=== PATIENT | male | born 1940 | race Caucasian/White ===

== ENCOUNTER 2018-07-04 07:41 | Emergency (ER) | payer OTHER ==
[2018-07-04 07:55] VITALS: BP 136/71; PULSE 92; TEMP 97.9; BMI 26.9
--- NOTE | 2018-07-04 07:56 | PDOC ---
History of Present Illness - General Chief Complaint: Rectal Bleed Stated Complaint: BLOOD IN THE STOOL Time Seen by Provider: 07/04/18 07:55 History Source: Patient Exam Limitations: No Limitations - History of Present Illness Initial Comments: 07/04/18 08:25 Mr. Hester is 78 yo M with a hx of AAA (stent 2005; last check was Jun 15, 2018 for patency and was patent), HTN, HLD, and gout presents to the emergency department with painless rectal bleeding that has been ongoing since Wednesday. Per the patient, he had a loose stool bowel movement that has red blood in the toilet. He had another movement on Wednesday and complains that he was having tarry black stool without bright red blood. He denies pain and weakness. His last colonscopy was 4 years ago and was within normal limits (positive familial hx of colon CA in brother and stomach CA in father) and denies hx of gastric ulcers. Denies the following: fevers, chills, SOB, chest pain, headache, visual changes, abdominal pain, dysuria, hematuria, constipation, and leg pain/ swelling. Pmhx: Refer to above Meds: atorvastatin, Aspirin 81 mg, losartan, and diltiazem. Recently prescribed isosorbide that was started last Wednesday Allergies: None Social: Denies tobacco, alcohol, and substance abuse Perianesthesia Rn: Dr. Choudhary with last EGD and Colonoscopy 4 yrs ago and was within normal limits. Past History - Past Medical History Allergies/Adverse Reactions: Allergies Allergy/AdvReac Type Severity Reaction Status Date / Time No Known Allergies Allergy Verified 03/02/18 09:56 Home Medications: Ambulatory Orders Aspirin [ASA -] 81 mg PO DAILY 03/21/13 Atorvastatin Ca [Lipitor] 10 mg PO DAILY 03/21/13 Diltiazem HCl [Diltiazem 24Hr Cd] 240 mg PO DAILY 03/02/18 Losartan Potassium 50 mg PO DAILY 03/02/18 Isosorbide Mononitrate [Imdur -] 30 mg PO DAILY 07/04/18 Anemia: No Asthma: No Cancer: No Cardiac Disorders: No CVA: No COPD: No CHF: No Dementia: No Diabetes: No GI Disorders: Yes (DIVERTICULOSIS) Disorders: Yes (GOUT) HTN: Yes Hypercholesterolemia: Yes Liver Disease: No Seizures: No Thyroid Disease: No - Surgical History Abdominal Surgery: Yes (AAA REPAIR, STENT) Appendectomy: No Cardiac Surgery: No Cholecystectomy: No Lung Surgery: No Neurologic Surgery: No Orthopedic Surgery: Yes (RT ANKLE SX) - Suicide/Smoking/Psychosocial Hx Smoking Status: Yes Smoking History: Former smoker Have you smoked in the past 12 months: No Number of Cigarettes Smoked Daily: 3 If you are a former smoker, when did you quit?: 2013 Information on smoking cessation initiated: No 'Breaking Loose' booklet given: 11/22/13 Hx Alcohol Use: Yes (SOCIAL) Drug/Substance Use Hx: No Review of Systems - Review of Systems Able to Perform ROS?: Yes Is the patient limited Portuguese proficient: No Constitutional: No: Chills, Diaphoresis, Fever, Weakness HEENTM: No: Eye Pain, Recent change in vision, Nose Pain, Throat Pain Respiratory: No: Shortness of Breath Cardiac (ROS): No: Chest Pain, Lightheadedness, Palpitations, Syncope ABD/GI: Yes: Rectal Bleeding, Tarry Stools. No: Constipated, Diarrhea, Difficulty Swallowing, Nausea, Vomiting, Abdominal cramping : No: Dysuria, Hematuria Musculoskeletal: No: Back Pain Integumentary: No: Rash Neurological: No: Headache Endocrine: No: Unexplained Weight Loss Hematologic/Lymphatic: No: Anemia *Physical Exam - Vital Signs Last Vital Signs Temp Pulse Resp BP Pulse Ox 97.9 F 92 H 18 136/71 94 L 07/04/18 07:54 07/04/18 07:54 07/04/18 07:54 07/04/18 07:54 07/04/18 07:54 - Physical Exam General Appearance: Yes: Nourished, Appropriately Dressed. No: Apparent Distress HEENT: positive: EOMI, LAQUITA Respiratory/Chest: positive: Lungs Clear, Normal Breath Sounds. negative: Chest Tender, Respiratory Distress, Accessory Muscle Use Cardiovascular: positive: Regular Rhythm, Regular Rate, S1, S2, Systolic Murmur (grade 1) Gastrointestinal/Abdominal: positive: Normal Bowel Sounds, Soft, Other ( abdominal bruit present). negative: Tender, Pulsatile Mass, Distended Rectal Exam: positive: normal rectal tone, heme positive stool, other (enlarged prostate without tenderness to palpation). negative: hemorrhoids Extremity: positive: Normal Capillary Refill, Normal Inspection, Normal Range of Motion. negative: Tender Integumentary: positive: Normal Color, Dry, Warm Neurologic: positive: dandy operator II-XII NML intact, Fully Oriented, Alert, Normal Mood/ Affect ED Treatment Course - LABORATORY CBC & Chemistry Diagram: 07/04/18 08:40 07/04/18 08:40 Medical Decision Making - Medical Decision Making 07/04/18 11:44 Mr. Hester is 78 yo M with a hx of AAA (stent 2005; last check was Jun 15, 2018 for patency and was patent), HTN, HLD, and gout presents to the emergency department with painless rectal bleeding that has been ongoing since Wednesday. Initial vitals: Initial Vital Signs Temp Pulse Resp BP Pulse Ox 97.9 F 92 H 18 136/71 94 L 07/04/18 07:54 07/04/18 07:54 07/04/18 07:54 07/04/18 07:54 07/04/18 07:54 Work up: CBC, CMP, PT/INR, aptt, TS, retype and screen, and CT abdomen and pelvis with IV contrast. CBC ordered to assess status of hemoglobin and hematocrit. PT/INR, aptt, TS ordered to have pre-operative values in the event of surgical intervention. This was considered due to his history of AAA with stent placement in 2005. CT abdomen/pelvis ordered with IV contrast to assess aorta patency and to assess if extravasation present and to rule out other critical pathologies that can cause GI bleed such as carcinoma (given familial hx), diverticulitis with possible perforation, and aorta-enteric fistula. All labs were within normal limits. No anemia present. A stool occult blood test was conducted and positive. CT showed sigmoid diverticulosis without diverticulitis and no leakage of the aorta. The patient was reassessed and continues to not have pain and did not produce hematochezia in the department. We spoke to his PMD and he is aware of the situation and will have close follow up. In addition, he was referred to gastroenterology for follow up. The patient agreed to this plan and accepted it. Dispo: Will be discharged after discussing with Dr. Stone the plan. *DC/Admit/Observation/Transfer Diagnosis at time of Disposition: Diverticulosis Qualifiers: Diverticulosis site: unspecified location Diverticulosis bleeding: diverticulosis with bleeding Qualified Code(s): K57.91 - Diverticulosis of intestine, part unspecified, without perforation or abscess with bleeding - Discharge Dispostion Disposition: HOME Condition at time of disposition: Stable Decision to Admit order: No - Referrals Referrals: Mateus Stone MD [Primary Care Provider] - Ricky Barnes DO [Staff Physician] - - Patient Instructions Printed Discharge Instructions: DI for Rectal Bleeding Additional Instructions: You have been seen in the emergency department for your rectal bleeding. Based on your imaging, you have diverticulosis which can cause painless rectal bleeding. Your abdominal aorta is patent and does not have a leakage. Your hemoglobin and hematocrit is stable. We contacted your primary medical doctor and is aware of your visit. You will be referred to Dr. Barnes for gastroenterology follow up. Please call him within 24-36 hours for follow up care and to make an appointment. Please return to the emergency department if you have profuse bleeding, fever/chills, and new onset of pain associated with your bleeding. Thank you. - Post Discharge Activity
[2018-07-04 08:53] LABS: HEMATOCRIT 47.5 % (35.4-49); HEMOGLOBIN 16.2 GM/dL (11.7-16.9); MCH 29.8 pg (25.7-33.7); MCHC 34.1 g/dl (32.0-35.9); MEAN CELL VOLUME 87.3 fl (80-96); MEAN PLT VOLUME 8.2 fl (7.5-11.1); PLATELET COUNT 252 K/MM3 (134-434); RBC 5.45 M/mm3 (4.00-5.60); RDW 14.9 % (11.9-15.9); WHITE BLOOD COUNT 7.6 K/mm3 (4.0-10.0)
[2018-07-04 09:04] LABS: INR 1.04 (0.83-1.09); PROTHROMBIN TIME (PATIENT) 12.3 SEC (9.7-13.0)
[2018-07-04 09:07] LABS: ACTIVATED PTT 31.4 SECONDS (25.2-36.5)
[2018-07-04 09:23] LABS: ALBUMIN 4.2 g/dl (3.4-5.0); ALK PHOS 67 U/L (45-117); ANION GAP 11 MMOL/L (8-16); BILIRUBIN,TOTAL 0.6 mg/dL (0.2-1); BLOOD UREA NITROGEN 16 mg/dL (7-18); CALCIUM 8.8 mg/dL (8.5-10.1); CHLORIDE 110 mmol/L (98-107); CO2 24 mmol/L (21-32); GLUCOSE,RANDOM 101 mg/dL (74-106); POTASSIUM 3.9 mmol/L (3.5-5.1); SGOT/AST 16 U/L (15-37); SGPT/ALT 24 U/L (13-61); SODIUM 145 mmol/L (136-145); TOT PROT 7.9 g/dl (6.4-8.2)
== END 2018-07-04 12:07 | disposition home or self-care (01) ==
LOC: JER 07:41 → SUPCPDRO 07:41 → JER 12:07
DX: K57.91 Diverticulosis of intestine, part unspecified, without perforation or abscess with bleeding (principal); I10 Essential (primary) hypertension; E78.00 Pure hypercholesterolemia, unspecified; Z86.79 Personal history of other diseases of the circulatory system; Z95.828 Presence of other vascular implants and grafts; Z87.891 Personal history of nicotine dependence
CPT/HCPCS: 36415; 74177-TC; 80053; 82272; 85027; 85610; 85730; 86850; 86900; 86901; 99283-25

== ENCOUNTER 2020-03-25 21:59 | Emergency (ER) | payer OTHER ==
[2020-03-25 22:05] VITALS: BP 166/88; PULSE 81; TEMP 98.3; BMI 24.4
--- NOTE | 2020-03-25 22:07 | PDOC ---
Rapid Medical Evaluation Chief Complaint: Ingrown toenail Time Seen by Provider: 03/25/20 22:04 Medical Evaluation: Allergies Allergy/AdvReac Type Severity Reaction Status Date / Time No Known Allergies Allergy Verified 03/02/18 09:56 03/25/20 22:04 80 year old male c/o discoloration to left great toe. denies trauma or injury. no use od blood thinners. PE: patient alert ox3. full rom A: left great toe color changes P: patient to the ER for further management of care. Discharge Disposition - Diagnosis Contusion of left great toe without damage to nail Qualifiers: Encounter type: initial encounter Qualified Code(s): S90.112A - Contusion of left great toe without damage to nail, initial encounter - Referrals - Patient Instructions - Post Discharge Activity
--- NOTE | 2020-03-25 22:46 | PDOC ---
History of Present Illness - General History Source: Patient, Old Records Exam Limitations: No Limitations - History of Present Illness Initial Comments: 03/25/20 22:17 HISTORY OF PRESENT ILLNESS: 78 yo M with a hx of AAA (stent 2005; last check was Jun 15, 2018 for patency and was patent), HTN, HLD, and gout presents emergency department for evaluation of bruising to left great toe. Patient denies any trauma. 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 PAST MEDICAL HISTORY: See HPI SURGICAL HISTORY: Denies ALLERGIES: No known drug allergies REVIEW OF SYSTEMS General/Constitutional: Denies fever or chills. Denies weakness, weight change. HEENT: Denies change in vision. Denies ear pain or discharge. Denies sore throat. Cardiovascular: Denies chest pain or shortness of breath. Respiratory: Denies cough, wheezing, or hemoptysis. Gastrointestinal: Denies nausea, vomiting, diarrhea or constipation. Denies rectal bleeding. Genitourinary: Denies dysuria, frequency, or change in urination. Musculoskeletal: See HPI Skin and breasts: Denies rash or easy bruising. Neurologic: Denies headache, vertigo, loss of consciousness, or loss of sensation. Psychiatric: Denies depression or anxiety. Endocrine: Denies increased thirst. Denies abnormal weight change. Hematologic/Lymphatic: Denies anemia, easy bleeding, or history of blood clots. Allergic/Immunologic: Denies hives or skin allergy. Denies latex allergy. PHYSICAL EXAM General Appearance: Well-appearing, appropriately dressed. No apparent distress, no intoxication. Musculoskeletal/Extremities: FROM of all extremities, normal capillary refill. Pelvis Stable. No CVA tenderness. No tenderness to extremities, pedal edema, swelling, erythema or deformity. Ecchymosis present to the plantar surface at the base of the great toe of the left foot. Neurovascularly intact. Integumentary: Ecchymosis present to the plantar surface at the base of the great toe of the left foot. 03/25/20 22:47 <Jatinder Fatima - Last Filed: 03/25/20 22:51> <Loretta Cross - Last Filed: 03/25/20 23:05> - General Chief Complaint: Ingrown toenail Stated Complaint: SICK Time Seen by Provider: 03/25/20 22:04 Past History - Medical History Anemia: No Asthma: No Cancer: No Cardiac Disorders: No CVA: No COPD: No CHF: No Dementia: No Diabetes: No GI Disorders: Yes (DIVERTICULOSIS) Disorders: Yes (GOUT) HTN: Yes Hypercholesterolemia: Yes Liver Disease: No Seizures: No Thyroid Disease: No - Surgical History Abdominal Surgery: Yes (AAA REPAIR, STENT) Appendectomy: No Cardiac Surgery: No Cholecystectomy: No Lung Surgery: No Neurologic Surgery: No Orthopedic Surgery: Yes (RT ANKLE SX) - Psycho-Social/Smoking History Smoking Status: Yes Smoking History: Never smoked Have you smoked in the past 12 months: No Number of Cigarettes Smoked Daily: 3 If you are a former smoker, when did you quit?: 2013 Information on smoking cessation initiated: No 'Breaking Loose' booklet given: 11/22/13 - Substance Abuse Hx (Audit-C & DAST Scrn) How often the patient has a drink containing alcohol: Never Score: In Men: 4 or > Positive; In Women: 3 or > Positive: 0 Screen Result (Pos requires Nsg. Audit-10AR): Negative In the last yr the pt used illegal drug/Rx for NonMed reason: No Score: Yes response is considered Positive: 0 Screen Result (Positive result requires Nsg. DAST-10): Negative <Jatinder Fatima - Last Filed: 03/25/20 22:51> <Loretta Cross - Last Filed: 03/25/20 23:05> - Medical History Allergies/Adverse Reactions: Allergies Allergy/AdvReac Type Severity Reaction Status Date / Time No Known Allergies Allergy Verified 03/25/20 22:05 Home Medications: Ambulatory Orders Aspirin [ASA -] 81 mg PO DAILY 03/21/13 Atorvastatin Ca [Lipitor] 10 mg PO DAILY 03/21/13 Diltiazem HCl [Diltiazem 24Hr Cd] 240 mg PO DAILY 03/02/18 Losartan Potassium 50 mg PO DAILY 03/02/18 Isosorbide Mononitrate [Imdur -] 30 mg PO DAILY 07/04/18 *Physical Exam - Vital Signs Last Vital Signs Temp Pulse Resp BP Pulse Ox 98.3 F 81 20 166/88 95 03/25/20 22:01 03/25/20 22:01 03/25/20 22:01 03/25/20 22:01 03/25/20 22:01 <Jatinder Fatima - Last Filed: 03/25/20 22:51> - Vital Signs Last Vital Signs Temp Pulse Resp BP Pulse Ox 98.3 F 81 20 166/88 95 03/25/20 22:01 03/25/20 22:01 03/25/20 22:01 03/25/20 22:01 03/25/20 22:01 <Loretta Cross - Last Filed: 03/25/20 23:05> ED Treatment Course - RADIOLOGY Radiology Studies Ordered: Category Date Time Status FOOT-LEFT [RAD] Stat Radiology 03/25/20 22:15 Ordered <Jatinder Fatima - Last Filed: 03/25/20 22:51> Medical Decision Making - Medical Decision Making 03/25/20 22:46 A/P: 80-year-old male with bruising to great toe of the left foot Patient denies trauma No bony deformity, crepitus, step-off present upon palpation of the bones of the left foot Full active range of motion noted Neurovascularly intact X-rays Reassess likely discharge home <Jatinder Fatima - Last Filed: 03/25/20 22:51> - Medical Decision Making 03/25/20 23:04 xray : negative. official read pending. patient to follow up with PCP <Loretta Cross - Last Filed: 03/25/20 23:05> Discharge - Discharge Information Problems reviewed: Yes - Admission No <Jatinder Fatima - Last Filed: 03/25/20 22:51> <Loretta Cross - Last Filed: 03/25/20 23:05> - Discharge Information Clinical Impression/Diagnosis: Contusion of left great toe without damage to nail Qualifiers: Encounter type: initial encounter Qualified Code(s): S90.112A - Contusion of left great toe without damage to nail, initial encounter Condition: Stable Disposition: HOME - Follow up/Referral Referrals: Mateus Stone MD [Primary Care Provider] - José Miguel Hussein DPM [Staff Physician] - - Patient Discharge Instructions Additional Instructions: You be given a referral for a fiberglass model maker. Call to schedule appointment for reevaluation. Your emergency department visit is incomplete until you follow-up with your regular doctor. Take Tylenol 2-500 mg tablets every 6 hours as needed for pain. This medication does not require a prescription and is [id number]. Return to the emergency department for any new or worsening symptoms. Thank you very much for choosing us to provide your emergent health care needs. - Post Discharge Activity
== END 2020-03-25 23:10 | disposition home or self-care (01) ==
LOC: JER 21:59
DX: S90.112A Contusion of left great toe without damage to nail, initial encounter (principal)
CPT/HCPCS: 73630-TC-LT; 99283-25

== ENCOUNTER 2020-07-29 15:08 | Emergency (ER) | payer OTHER | END 2020-07-29 15:31 | disposition home or self-care (01) | LOC: JVIRT 15:08 | DX: Z03.818 Encounter for observation for suspected exposure to other biological agents ruled out (principal) | CPT/HCPCS: C9803; G2012-GT; U0003 ==

== ENCOUNTER 2020-10-03 14:14 | Emergency (ER) | payer BC | END 2020-10-03 15:16 | disposition home or self-care (01) | LOC: JVIRT 14:14 | DX: Z20.822 Contact with and (suspected) exposure to COVID-19 (principal) | CPT/HCPCS: C9803; G2251-GT; Q3014-GT; U0003 ==